=== PATIENT | female | born 1940 | race Caucasian/White ===

== ENCOUNTER 2020-06-29 11:19 | Outpatient (REF) | payer MEDICARE, SELFPAY ==
--- NOTE | 2020-06-29 | MM_ITS ---
EXAMINATION: MM SCREENING DIGITAL BREAST TOMOSYNTHESIS, BILATERAL CLINICAL INFORMATION: Screening. Asymptomatic. The lifetime risk of breast cancer based on the Tyrer-Cuzick Model is 3.2%. COMPARISON: Mammography: June 21, 2019 and studies dating back to August 12, 2013 TECHNIQUE: Digital breast tomosynthesis is performed in both the craniocaudal and mediolateral oblique views along with computer-aided detection (CAD). Synthesized 2D images are generated from the tomosynthesis. FINDINGS: The breasts are almost entirely fatty (ACR BI-RADS breast composition Category a). There are no significant masses, abnormal calcifications, or other abnormalities. MM/MM tomosynthesis screening BI IMPRESSION: There are no significant changes from prior study. ASSESSMENT: BI-RADS 1: Negative RECOMMENDATION: Routine annual mammography screening. This patient's information was entered into a reminder system with a target due date for their next mammogram.
== END 2020-06-29 11:20 | disposition home or self-care (01) ==
LOC: HO.MAMMO 11:19
PROVIDERS: PCP Internal Medicine; Visit Provider Internal Medicine
DX: Z12.31 Encounter for screening mammogram for malignant neoplasm of breast (principal)
CPT/HCPCS: 77063; 77067

== ENCOUNTER 2020-07-06 12:57 | Outpatient (REF) | payer MEDICARE, SELFPAY ==
[2020-07-06 14:36] LABS: Alanine Aminotransferase 16 U/L (0-31); Anion Gap 12 (12-20); Aspartate Amino Transferase 16 U/L (5-31); Blood Urea Nitrogen 25 mg/dL (9-16); Calcium 9.2 mg/dL (8.4-10.2); Carbon Dioxide 30 mmol/L (22-29); Chloride 105 mmol/L (96-108); Cholesterol 194 mg/dL; Estimated Glomerular Filt Rate > 60; Glucose Fasting 153 mg/dL (60-99); HDL Cholesterol 60 mg/dL; LDL Cholesterol Calculated 107 mg/dl; Potassium 4.2 mmol/l (3.3-5.1); Sodium 143 mmol/L (135-145); Triglycerides 139 mg/dL
[2020-07-06 14:44] LABS: Free T4 (Free Thyroxine) 1.45 ng/dL (0.71-1.85); Thyroid Stimulating Hormone 0.05 uIU/mL (0.32-4.0); Vitamin D 25-OH Total 35.3 ng/mL (>30)
== END 2020-07-06 12:58 | disposition home or self-care (01) ==
LOC: HO.HMGCLDS 12:57
PROVIDERS: PCP Internal Medicine; Visit Provider Internal Medicine
DX: E78.5 Hyperlipidemia, unspecified (principal); E03.9 Hypothyroidism, unspecified; I10 Essential (primary) hypertension; Z78.0 Asymptomatic menopausal state
CPT/HCPCS: 80048; 80061; 82306; 84439; 84443; 84450; 84460

== ENCOUNTER 2020-08-20 14:40 | Outpatient (REF) | payer MEDICARE, SELFPAY ==
--- NOTE | 2020-08-20 14:43 | XR_ITS ---
EXAMINATION: XR FOOT, RIGHT CLINICAL INFORMATION: Right foot injury. COMPARISON: None TECHNIQUE: AP, lateral, and oblique views of the right foot. FINDINGS: There is mild hallux valgus deformity first MTP joint with mild reduction in joint space. Rest of the visualized MTP and IP joints are normal. No visible acute fracture, dislocation or subluxation seen. There is small loose body seen adjacent to the navicular bone likely old injury. There is a small calcaneal heel and retrocalcaneal enthesophytes. The ankle mortise and subtalar joints are normal. There is dorsal first metatarsophalangeal joint dorsal spine. XR/XR foot RT min 3V IMPRESSION: Degenerative changes first MTP joint with hallux valgus deformity. Small enthesophytes along calcaneal heel and retrocalcaneal region. Mild dorsal spurring first MTP joint No acute fracture seen.
== END 2020-08-20 14:41 | disposition home or self-care (01) ==
LOC: HO.HMGCX 14:40
PROVIDERS: PCP Internal Medicine; Visit Provider Nurse Practitioner Family
DX: S99.929A Unspecified injury of unspecified foot, initial encounter (principal); X58.XXXA Exposure to other specified factors, initial encounter; Y93.9 Activity, unspecified; Y92.9 Unspecified place or not applicable; Y99.8 Other external cause status
CPT/HCPCS: 73630

== ENCOUNTER 2020-12-07 07:18 | Outpatient (REF) | payer MEDICARE, SELFPAY ==
[2020-12-07 08:02] LABS: Anion Gap 8 (12-20); Blood Urea Nitrogen 21 mg/dL (9-16); Calcium 10.2 mg/dL (8.4-10.2); Carbon Dioxide 32 mmol/L (22-29); Chloride 105 mmol/L (96-108); Cholesterol 233 mg/dL; Estimated Glomerular Filt Rate > 60; Glucose Fasting 115 mg/dL (60-99); HDL Cholesterol 67 mg/dL; LDL Cholesterol Calculated 143 mg/dl; Potassium 4.4 mmol/L (3.3-5.1); Sodium 141 mmol/L (135-145); Triglycerides 116 mg/dL
[2020-12-07 08:23] LABS: Free T4 (Free Thyroxine) 1.26 ng/dL (0.71-1.85); Thyroid Stimulating Hormone 1.27 uIU/mL (0.32-4.0)
== END 2020-12-07 07:19 | disposition home or self-care (01) ==
LOC: HO.LAB 07:18
PROVIDERS: PCP Internal Medicine; Visit Provider Internal Medicine
DX: I10 Essential (primary) hypertension (principal); R73.01 Impaired fasting glucose; E03.9 Hypothyroidism, unspecified; E78.5 Hyperlipidemia, unspecified
CPT/HCPCS: 36415; 80048; 80061; 84439; 84443

== ENCOUNTER 2021-01-21 10:00 | Outpatient (RCR) | payer MEDICARE, SELFPAY ==
[2021-01-08 08:03] VITALS: BP 145/90
--- NOTE | 2021-01-08 09:28 | MHC.PT.EP ---
[facility] [place] [facility] [place] [facility] [place] [facility] [address] Michelle Pino [address] [phone] F: [phone] F: [phone] F: [phone] F: [phone] Physical Therapy Plan of Care Date of Evaluation: Date of Surgery: Diagnosis: Positional lightheadedness Assessment: Hayley is a 80 y.o. female referred to PT for positional light headedness . On PT exam she presents with dizziness w/ saccades and smooth pursuit, and altered static and dynamic balance. She was negative for BPPV in [place] and roll tests. She would benefit from skilled PT to improve the aforementioned impairments to improve her tolerance for ADLs and ambulation. She is motivated for PT. Plan of care was discussed with Hayley and she is in agreement to try HEP and follow up with PT in one week. She was recommended 2/week but she would be doing 1/week due to high copay. Frequency and Duration: The patient will be seen 1x week for 4 weeks Short Term Goals: 1. Pt will be able to read while her head is in motion without any dizziness (DVA- 0 lines) in 2 weeks. 2. Pt will be able to perform all ADLS without LOB and dizziness in 3 weeks. [employer] Goals: 1. Pt will be able to resume walking outside on uneven terrain without any fear of LOB and dizziness in 4 weeks. 2. Pt will return to PLOF without LOB and dizziness in 4 weeks. Treatment Plan: Modalities to reduce pain, spasms and effusion. Manual therapy to restore motion and function. Therapeutic exercise to improve strength and flexibility. Neuromuscular re-education for posture and balance. Therapeutic activities to return to functional activities of daily living. Electronically signed by: Candy Rizvi PT DPT Please sign and return to therapist. Thank you for your referral.
== END 2021-02-15 15:13 | disposition home or self-care (01) ==
LOC: HO.PT 10:00
PROVIDERS: PCP Internal Medicine; Visit Provider Internal Medicine
DX: R42 Dizziness and giddiness (principal)
CPT/HCPCS: 97110; 97112; 97161

== ENCOUNTER 2021-06-14 06:58 | Outpatient (REF) | payer MEDICARE, SELFPAY ==
[2021-06-14 07:56] LABS: Alanine Aminotransferase 21 U/L (0-31); Anion Gap 12 (12-20); Aspartate Amino Transferase 20 U/L (5-31); Blood Urea Nitrogen 24 mg/dL (9-16); Calcium 9.8 mg/dL (8.4-10.2); Carbon Dioxide 28 mmol/L (22-29); Chloride 106 mmol/L (96-108); Cholesterol 211 mg/dL; Estimated Glomerular Filt Rate > 60; Glucose Fasting 100 mg/dL (60-99); HDL Cholesterol 61 mg/dL; LDL Cholesterol Calculated 127 mg/dl; Potassium 4.5 mmol/L (3.3-5.1); Sodium 141 mmol/L (135-145); Triglycerides 116 mg/dL
[2021-06-14 08:18] LABS: Free T4 (Free Thyroxine) 1.49 ng/dL (0.71-1.85); Thyroid Stimulating Hormone 0.38 uIU/mL (0.32-4.0)
== END 2021-06-14 06:59 | disposition home or self-care (01) ==
LOC: HO.LAB 06:58
PROVIDERS: PCP Internal Medicine; Visit Provider Internal Medicine
DX: E03.9 Hypothyroidism, unspecified (principal); E78.5 Hyperlipidemia, unspecified; I10 Essential (primary) hypertension; R73.01 Impaired fasting glucose
CPT/HCPCS: 36415; 80048; 80061; 82306; 84439; 84443; 84450; 84460

== ENCOUNTER 2021-12-04 07:15 | Outpatient (REF) | payer MEDICARE, SELFPAY ==
[2021-12-04 08:07] LABS: Alanine Aminotransferase 21 U/L (0-31); Anion Gap 11 (12-20); Aspartate Amino Transferase 20 U/L (5-31); Blood Urea Nitrogen 21 mg/dL (9-16); Calcium 10.6 mg/dL (8.4-10.2); Carbon Dioxide 30 mmol/L (22-29); Chloride 103 mmol/L (96-108); Cholesterol 213 mg/dL; Estimated Glomerular Filt Rate > 60; Glucose Fasting 116 mg/dL (60-99); HDL Cholesterol 61 mg/dL; LDL Cholesterol Calculated 129 mg/dl; Potassium 4.8 mmol/L (3.3-5.1); Sodium 139 mmol/L (135-145); Triglycerides 115 mg/dL
[2021-12-04 08:27] LABS: Free T4 (Free Thyroxine) 1.37 ng/dL (0.71-1.85); Thyroid Stimulating Hormone 0.39 uIU/mL (0.32-4.0); Vitamin D 25-OH Total 39.5 ng/mL (>30)
== END 2021-12-04 07:16 | disposition home or self-care (01) ==
LOC: HO.LAB 07:15
PROVIDERS: PCP Internal Medicine; Visit Provider Internal Medicine
DX: E03.9 Hypothyroidism, unspecified (principal); E78.5 Hyperlipidemia, unspecified; F41.1 Generalized anxiety disorder; I10 Essential (primary) hypertension; R73.01 Impaired fasting glucose; N95.9 Unspecified menopausal and perimenopausal disorder; M85.89 Other specified disorders of bone density and structure, multiple sites
CPT/HCPCS: 36415; 80048; 80061; 82306; 84439; 84443; 84450; 84460

== ENCOUNTER 2022-01-09 10:25 | Outpatient (REF) | payer MEDICARE, SELFPAY ==
--- NOTE | ~2022-01-09 | MM_ITS ---
EXAMINATION: BONE DENSITOMETRY CLINICAL INDICATION: Encounter for screening for osteoporosis. COMPARISON: Previous BD dated 05/27/2018 and baseline BD dated 03/22/2015, left hip. TECHNIQUE: Using a [employer] DXA System (software version: 13.1) manufactured by [employer], dual-energy x-ray absorptiometry was performed of the lumbar spine and left hip. The images are of good technical quality. Summary results are attached. FINDINGS: AP SPINE L1-L4: Current: BMD 1.210 g/cm2, Z-score 1.6, T-score 0.2, normal, 0.6% increase from previous, 5.7% increase from baseline (<5% change is not significant). Prior: BMD 1.203 g/cm2. Baseline: BMD 1.145 g/cm2. LEFT FEMUR, NECK: Current: BMD 0.724 g/cm2, Z-score -0.4, T-score -2.3, osteopenia. Prior: BMD 0.726 g/cm2. Baseline: BMD 0.746 g/cm2. LEFT FEMUR, TOTAL: Current: BMD 0.849 g/cm2, Z-score 0.4, T-score -1.3, osteopenia, 2.9% decrease from previous, 5.8% decrease from baseline (<5% change is not significant). Prior: BMD 0.874 g/cm2. Baseline: BMD 0.901 g/cm2. IDENTIFIED RISK FACTORS: Recurrent falls, history of fracture (adult), menopause. HISTORY OF FRACTURE: Lower leg/fibula. MEDICATIONS: Calcium supplements or multivitamin, vitamin D. MM/XR DEXA axial skeleton IMPRESSION: 1. DIAGNOSIS: Osteopenia based on the lowest T-score value of -2.3 in the femoral neck applying World Health Organization criteria. 2. 10-YEAR FRACTURE RISK PREDICTION, FRAX: Major osteoporotic fracture (clinical spine, forearm, hip or shoulder) 23.1%. Hip fracture 6.8%. 3. Treatment Recommendations: NOF guidelines recommend consideration for treatment in postmenopausal women and men age 50 and older presenting with the following: -A hip or vertebral (clinical or morphometric) fracture. -T-score less than or equal to -2.5 at the femoral neck or spine after appropriate evaluation to exclude secondary causes. -Low bone mass at the hip or spine and a 10-year fracture probability by FRAX of greater than or equal to 3% for hip fracture or greater than or equal to 20% for major osteoporotic fracture based on the [place] adapted WHO algorithm. 4. Other Recommendations: All treatment decisions require clinical judgment and consideration of individual patient factors, including patient preferences, comorbidities, previous drug use, risk factors not captured in the FRAX model (e.g. frailty, falls, vitamin D deficiency, increased bone turnover, interval significant decline in bone density) and possible under or overestimation of fracture risk by FRAX. Additional medical evaluation for secondary cause of low bone mineral density may be appropriate. FUTURE SCAN RECOMMENDATION: People with diagnosed cases of osteoporosis or at high risk for fracture should have regular bone mineral density tests. For patients eligible for Medicare, routine testing is allowed once every 2 years. The testing frequency can be increased to one year for patients who have rapidly progressing disease, those who are receiving or discontinuing medical therapy to restore bone mass, or have additional risk factors.
--- NOTE | ~2022-01-09 | MM_ITS ---
EXAMINATION: MM SCREENING DIGITAL BREAST TOMOSYNTHESIS, BILATERAL CLINICAL INFORMATION: Screening. Asymptomatic. The lifetime risk of breast cancer based on the Tyrer-Cuzick Model is 2%. COMPARISON: Mammography: 06/29/2020, 06/21/2019, 05/25/2018 TECHNIQUE: Digital breast tomosynthesis is performed in both the craniocaudal and mediolateral oblique views along with computer-aided detection (CAD). Synthesized 2D images are generated from the tomosynthesis. FINDINGS: There are scattered areas of fibroglandular density (ACR BI-RADS breast composition Category b). There are no significant masses, abnormal calcifications, or other abnormalities. Parenchymal pattern is similar to prior studies. There is no developing density or architectural abnormality. The axilla and skin contours are unremarkable. No significant changes. MM/MM tomosynthesis screening BI IMPRESSION: No mammographic evidence of malignancy. ASSESSMENT: BI-RADS 1: Negative RECOMMENDATION: Routine annual mammography screening. This patient's information was entered into a reminder system with a target due date for their next mammogram.
== END 2022-01-09 10:26 | disposition home or self-care (01) ==
LOC: HO.MAMMO 10:25
PROVIDERS: PCP Internal Medicine; Visit Provider Internal Medicine
DX: Z12.31 Encounter for screening mammogram for malignant neoplasm of breast (principal); Z13.820 Encounter for screening for osteoporosis; M85.89 Other specified disorders of bone density and structure, multiple sites; Z78.0 Asymptomatic menopausal state
CPT/HCPCS: 77063; 77067; 77080

== ENCOUNTER 2022-03-12 06:49 | Outpatient (REF) | payer MEDICARE, SELFPAY ==
[2022-03-12 07:31] LABS: Estimated Average Glucose 117 mg/dL; Hemoglobin A1c % 5.7 %
[2022-03-12 07:46] LABS: Alanine Aminotransferase 20 U/L (0-31); Anion Gap 12 (12-20); Aspartate Amino Transferase 20 U/L (5-31); Blood Urea Nitrogen 20 mg/dL (9-16); Calcium 9.4 mg/dL (8.4-10.2); Carbon Dioxide 29 mmol/L (22-29); Chloride 103 mmol/L (96-108); Cholesterol 204 mg/dL; Estimated Glomerular Filt Rate 56; Glucose Fasting 103 mg/dL (60-99); HDL Cholesterol 66 mg/dL; LDL Cholesterol Calculated 123 mg/dl; Potassium 4.4 mmol/L (3.3-5.1); Sodium 140 mmol/L (135-145); Triglycerides 75 mg/dL
[2022-03-12 08:09] LABS: Free T4 (Free Thyroxine) 1.55 ng/dL (0.71-1.85); Thyroid Stimulating Hormone 0.21 uIU/mL (0.32-4.0); Vitamin D 25-OH Total 41.2 ng/mL (>30)
[2022-03-15 12:57] LABS: Calcium, Ionized 5.2 mg/dL (4.8-5.6)
== END 2022-03-12 06:50 | disposition home or self-care (01) ==
LOC: HO.LAB 06:49
PROVIDERS: PCP Internal Medicine; Visit Provider Internal Medicine
DX: E03.9 Hypothyroidism, unspecified (principal); E78.5 Hyperlipidemia, unspecified; I10 Essential (primary) hypertension; E83.52 Hypercalcemia; F41.1 Generalized anxiety disorder; R73.01 Impaired fasting glucose; Z78.0 Asymptomatic menopausal state
CPT/HCPCS: 36415; 80048; 80061; 82306; 82330; 83036; 84439; 84443; 84450; 84460

== ENCOUNTER 2022-05-22 07:32 | Outpatient (REF) | payer MEDICARE, SELFPAY ==
[2022-05-22 08:42] LABS: Thyroid Stimulating Hormone 0.83 uIU/mL (0.32-4.0)
== END 2022-05-22 07:33 | disposition home or self-care (01) ==
LOC: HO.LAB 07:32
PROVIDERS: PCP Internal Medicine; Visit Provider Internal Medicine
DX: E03.9 Hypothyroidism, unspecified (principal)
CPT/HCPCS: 36415; 84439; 84443

== ENCOUNTER → 2022-06-26 10:17 | Outpatient (BNVA) | payer MEDICARE, SELFPAY | PROVIDERS: PCP Internal Medicine; Visit Provider Surgery | DX: K64.8 Other hemorrhoids (principal) | CPT/HCPCS: 46600; 99202 ==

== ENCOUNTER → 2022-08-28 13:00 | Outpatient (BNVA) | payer MEDICARE, SELFPAY | PROVIDERS: PCP Internal Medicine; Visit Provider Surgery | DX: K64.8 Other hemorrhoids (principal) | CPT/HCPCS: 99212 ==

== ENCOUNTER 2022-11-08 11:55 | Outpatient (REF) | payer MEDICARE, SELFPAY ==
--- NOTE | ~2022-11-08 | XR_ITS ---
EXAMINATION: XR KNEE, RIGHT CLINICAL INFORMATION: Right knee osteoarthritis. COMPARISON: None available. TECHNIQUE: Four views of the right knee. FINDINGS: Mild medial compartment joint space narrowing. Small tricompartmental marginal osteophytes. No acute fracture or dislocation. No concerning lytic or blastic osseous lesion. Trace joint effusion. No abnormal soft tissue calcification. XR/XR knee RT 4V IMPRESSION: Mild tricompartmental osteoarthritis. Trace joint effusion.
== END 2022-11-08 11:56 | disposition home or self-care (01) ==
LOC: HO.HMGCX 11:55
PROVIDERS: PCP Internal Medicine; Visit Provider Physician Assistant
DX: M17.11 Unilateral primary osteoarthritis, right knee (principal)
CPT/HCPCS: 73564

== ENCOUNTER 2022-11-10 13:20 | Outpatient (REF) | payer MEDICARE, SELFPAY ==
--- NOTE | ~2022-11-10 | US_ITS ---
EXAMINATION: US VENOUS ULTRASOUND WITH DOPPLER LOWER EXTREMITY, RIGHT CLINICAL INFORMATION: Swelling COMPARISON: None available. TECHNIQUE: Ultrasound of the deep veins is performed from the hip to the calf with compression sonography and color and pulse Doppler assessment. Spectral analysis with color-flow imaging is performed. FINDINGS: There is normal venous compression and respiratory variation and augmented flow. The visualized common femoral vein, superficial femoral vein, profunda femoral vein, popliteal vein, and the trifurcation region shows no evidence of deep venous thrombosis. There is no significant popliteal fossa cyst. US/US venous duplex LE RT IMPRESSION: No DVT demonstrated in the right lower extremity.
== END 2022-11-10 13:21 | disposition home or self-care (01) ==
LOC: HO.US 13:20
PROVIDERS: PCP Internal Medicine; Visit Provider Physician Assistant
DX: M79.89 Other specified soft tissue disorders (principal)
CPT/HCPCS: 93971

== ENCOUNTER 2022-11-24 13:47 | Outpatient (REF) | payer MEDICARE, SELFPAY ==
--- NOTE | ~2022-11-24 | XR_ITS ---
EXAMINATION: XR KNEE STANDING, BILATERAL XR KNEE, LEFT CLINICAL INDICATION: Pain. COMPARISON: Left knee 03/02/2014. FINDINGS: AP Bilateral Knee: There is moderate loss of medial compartment joint space of both knees with periarticular spurring medial compartment left knee. The lateral compartment of both knees is unremarkable. No loose bodies or bony erosive changes seen. Left Knee: There is mild loss of patellofemoral compartment joint space without bony erosive changes, loose bodies or spurring. No abnormal joint effusion seen. XR/XR knee LT 2V IMPRESSION: 1. Moderate degenerative changes medial compartment both knees with periarticular spurring medial compartment left knee. 2. Mild degenerative changes patellofemoral compartment left knee.
--- NOTE | ~2022-11-24 | XR_ITS ---
EXAMINATION: XR KNEE STANDING, BILATERAL XR KNEE, LEFT CLINICAL INDICATION: Pain. COMPARISON: Left knee 03/02/2014. FINDINGS: AP Bilateral Knee: There is moderate loss of medial compartment joint space of both knees with periarticular spurring medial compartment left knee. The lateral compartment of both knees is unremarkable. No loose bodies or bony erosive changes seen. Left Knee: There is mild loss of patellofemoral compartment joint space without bony erosive changes, loose bodies or spurring. No abnormal joint effusion seen. XR/XR knee standing BI IMPRESSION: 1. Moderate degenerative changes medial compartment both knees with periarticular spurring medial compartment left knee. 2. Mild degenerative changes patellofemoral compartment left knee.
== END 2022-11-24 13:48 | disposition home or self-care (01) ==
LOC: HO.HOSX 13:47
PROVIDERS: PCP Internal Medicine; Visit Provider Orthopaedic Surgery
DX: M17.0 Bilateral primary osteoarthritis of knee (principal)
CPT/HCPCS: 20610; 73560; 73565; 99202; J1100

== ENCOUNTER 2023-01-14 10:23 | Outpatient (REF) | payer MEDICARE, SELFPAY ==
--- NOTE | ~2023-01-14 | MM_ITS ---
EXAMINATION: MM SCREENING DIGITAL BREAST TOMOSYNTHESIS, BILATERAL CLINICAL INFORMATION: Screening. Asymptomatic. The lifetime risk of breast cancer based on the Tyrer-Cuzick Model is under 3%. COMPARISON: Mammography: 01/09/2022, 06/29/2020, 06/21/2019 TECHNIQUE: Digital breast tomosynthesis is performed in both the craniocaudal and mediolateral oblique views along with computer-aided detection (CAD). Synthesized 2D images are generated from the tomosynthesis. Additional left CC view is provided. FINDINGS: There are scattered areas of fibroglandular density (ACR BI-RADS breast composition Category b). There are no significant masses, abnormal calcifications, or other abnormalities. Background stromal and fibroglandular markings are similar to previous exams and there is no developing density or architectural abnormality. Small smooth intramammary node again seen posterior central 9:00 right breast. There are scattered bilateral benign round and some ductal secretory and numerous vascular calcifications as before. The axilla are unremarkable. MM/MM tomosynthesis screening BI IMPRESSION: No mammographic evidence of malignancy. ASSESSMENT: BI-RADS 2: Benign RECOMMENDATION: Routine annual mammography screening. This patient's information was entered into a reminder system with a target due date for their next mammogram.
== END 2023-01-14 10:24 | disposition home or self-care (01) ==
LOC: HO.MAMMO 10:23
PROVIDERS: PCP Internal Medicine; Visit Provider Internal Medicine
DX: Z12.31 Encounter for screening mammogram for malignant neoplasm of breast (principal)
CPT/HCPCS: 77063; 77067

== ENCOUNTER 2023-02-24 01:55 | Emergency (ER) | payer MEDICARE, SELFPAY ==
--- NOTE | ~2023-02-24 | CT_ITS ---
EXAMINATION: CT ABDOMEN AND PELVIS WITHOUT CONTRAST CLINICAL INFORMATION: Question of small bowel COMPARISON: 06/21/2017 TECHNIQUE: Multidetector volumetric imaging was performed from the superior aspect of the liver through the pubic symphysis. Sagittal and coronal reformatted images were obtained on the technologist's workstation. This CT examination was performed using dose optimization techniques as appropriate, variously including the following: *Automated exposure control *Adjustment of mA and/or kV according to patient size (this includes techniques or standardized protocols for targeted exams where dose is matched to indication/reason for exam; i.e. extremities or head) *Use of iterative reconstruction technique DLP: 791 mGy-cm FINDINGS: LUNG BASES: The visualized lung bases are unremarkable. LIVER, GALLBLADDER, AND BILIARY TREE: The liver is normal in size, shape, and attenuation. No focal hepatic lesion or biliary ductal dilatation is present. The gallbladder is unremarkable with no evidence of radiopaque gallstones, gallbladder wall thickening, or obvious pericholecystic inflammatory changes. PANCREAS: Unremarkable. SPLEEN: Unremarkable. ADRENAL GLANDS: Unremarkable. KIDNEYS AND URETERS: The kidneys are normal in size, shape, and attenuation. No hydronephrosis, hydroureter, or calculi seen. No perinephric stranding. BLADDER: Unremarkable. GASTROINTESTINAL TRACT: Right hemicolectomy with intact ileocolic anastomosis in the right midabdomen. There are a few scattered colonic diverticula. No evidence of diverticulitis. Stomach and small bowel unremarkable. ABDOMINAL WALL: No significant hernia. LYMPH NODES: Normal. VASCULAR: Aorta is atherosclerotic but nonaneurysmal. Small penetrating atherosclerotic ulceration along the left lateral aspect of the mid abdominal aorta. PELVIC VISCERA: Uterus and adnexa unremarkable. OSSEOUS STRUCTURES: No acute or suspicious osseous abnormalities. Mild levoconvex lumbar scoliosis. CT/CT abdomen pelvis wo IV con IMPRESSION: * No acute findings within the abdomen or pelvis. * Right hemicolectomy with intact ileocolic anastomosis in the right midabdomen. * Scattered colonic diverticula without evidence of diverticulitis.
[2023-02-24 01:57] VITALS: BP 157/83; PULSE 67; RESP 16; TEMP 36.4; O2SAT 96; BMI 32.0
[2023-02-24 03:08] LABS: MANUAL DIFF FLAG NO
[2023-02-24 03:13] LABS: Basophils Absolute Auto 0.1 X10*3/uL (0.0-0.2); Basophils Percent Auto 0.6 % (0-2); Eosinophils Absolute Auto 0.3 X10*3/uL (0.0-0.4); Eosinophils Percent Auto 4.2 % (0-4); Hematocrit 41.9 % (37.0-47.0); Hemoglobin 13.9 g/dl (12.0-16.0); Imm Gran Abs Auto 0.02 X10*3/uL (0.00-0.03); Imm Gran Pct Auto 0.3 % (0.0-0.4); Lymphocytes Absolute Auto 1.5 X10*3/uL (1.2-4.9); Mean Corpuscular HGB Conc 33.2 g/dl (31.0-35.0); Mean Corpuscular Hemoglobin 31.2 pg (27.0-33.0); Mean Corpuscular Volume 94.2 fL (80.0-98.0); Monocytes Absolute Auto 0.6 X10*3/uL (0.1-1.2); Monocytes Percent Auto 7.9 % (2-11); Neutrophils Absolute Auto 5.2 x10*3/uL (2.0-8.3); Platelet Count 230 X10*3/uL (160-400); Red Blood Count 4.45 X10*6/uL (4.20-5.50); Red Cell Distribution Width 13.8 % (11.0-16.0); White Blood Count 7.7 X10*3/uL (4.8-10.8)
[2023-02-24 03:24] LABS: Alanine Aminotransferase 21 U/L (0-31); Albumin Level 4.2 g/dL (3.5-5.0); Alkaline Phosphatase 60 U/L (39-117); Anion Gap 17 (12-20); Aspartate Amino Transferase 21 U/L (5-31); Bilirubin Direct 0.2 mg/dL (0.0-0.5); Bilirubin Total 0.4 mg/dL (0.0-1.0); Blood Urea Nitrogen 22 mg/dL (9-16); Calcium 10.4 mg/dL (8.4-10.2); Carbon Dioxide 25 mmol/L (22-29); Chloride 106 mmol/L (96-108); Creatinine Clr Calc Pharmacy 46.5; Estimated Glomerular Filt Rate 59; Glucose Random 119 mg/dL (60-115); Lipase 16 U/L (8-78); Potassium 4.5 mmol/L (3.3-5.1); Sodium 143 mmol/L (135-145); Total Protein 7.2 g/dL (6.5-8.0)
--- NOTE | 2023-02-24 04:05 | ED_ITS ---
HPI - Abdominal Pain General Chief Complaint: Abdominal Pain Stated Complaint: Abd pain Time Seen by Provider: 02/24/23 03:59 Source: patient Mode of arrival: ambulatory Limitations: no limitations History of Present Illness HPI narrative: Patient comes to the emergency room complaining of 4 hours of abdominal pain. Patient states that she has had multiple small-bowel obstructions in the past and it feels very similar. Patient complaining of nausea, no vomiting. Patient states that earlier today she took some Mag citrate and she was able to move her bowels but that is before the abdominal pain started. Denies fever chills, no URI or UTI. Related Data Home Medications Medication Instructions Recorded Confirmed loratadine 10 mg tablet 10 mg PO DAILY 11/29/20 11/08/22 multivitamin 1 tab PO DAILY 11/29/20 11/08/22 tizanidine 4 mg tablet 4 mg PO BID PRN muscle spasticity 03/17/22 11/08/22 Previous Rx's Medication Instructions Recorded cholecalciferol (vitamin D3) 25 25 mcg PO DAILY #90 caps 01/11/21 mcg (1,000 unit) capsule albuterol sulfate 90 mcg/actuation 2 puff PO Q4H PRN for wheezing 06/27/22 aerosol inhaler #8.5 grams Synthroid 100 mcg tablet 100 mcg PO DAILY 90 days #90 tabs 10/31/22 (levothyroxine) buspirone 5 mg tablet 5 mg PO TID #270 tabs 11/21/22 inhalational spacing device #1 ea 11/21/22 (BreatheRite MDI Spacer) losartan 100 mg tablet 100 mg PO DAILY #90 tabs 11/26/22 budesonide-formoterol HFA 80 2 puff inhalation BID #30.6 grams 01/29/23 mcg-4.5 mcg/actuation aerosol inhaler (Symbicort) zolpidem 5 mg tablet 5 mg PO BEDTIME PRN insomnia #30 01/29/23 tabs celecoxib 200 mg capsule 200 mg PO BID #90 caps 02/16/23 dicyclomine 20 mg tablet 20 mg PO TID #90 tabs 02/19/23 ondansetron 4 mg disintegrating 4 mg PO Q6H PRN nausea and 02/24/23 tablet vomiting #14 tabs Allergies Allergy/AdvReac Type Severity Reaction Status Date / Time Penicillins [PENICILLINS] Allergy Intermediate HIVES Verified 11/21/22 11:52 pneumococcal vaccine Allergy Unknown hives Verified 11/21/22 11:52 sulfamethoxazole AdvReac Intermediate STOMACH Verified 11/21/22 11:52 [From BACTRIM] UPSET Arzljcy-YSH-BdO Reductase AdvReac Mild MUSCLE PAIN Verified 11/21/22 11:52 Inhibitor [[id number]-SKC REDUCTASE INHIBITOR] simvastatin AdvReac Unknown muscle pain Verified 11/21/22 11:52 Review of Systems Review of Systems Constitutional : No Weight loss, No Fever, No Chills, No Night Sweats, No Fatigue, No Malaise ENT/Mouth : No Hearing loss, No Ear Pain, No Nasal Congestion, No Sinus Pain, No Hoarseness, No sore throat, No Rhinorrhea, No Swallowing Difficulty Eyes: No Eye Pain, No Swelling, No Redness, No Foreign Body, No Discharge, No Vision Changes Cardiovascular : No Chest Pain, No SOB, No Dyspnea on Exertion, No Orthopnea, No Edema, No Palpitations Respiratory : No Cough, No Sputum, No Wheezing, No Smoke Exposure, No Dyspnea Gastrointestinal : Complaining of nausea, no vomiting or diarrhea, complaining of diffuse abdominal pain, states feels like a small bowel obstruction Genitourinary : no irregular bleeding, No Dysuria, No Urinary Frequency, No Hematuria, No Urinary Incontinence, No Urgency, No Flank Pain, No Urinary Flow Changes, No Hesitancy Musculoskeletal : No joint pain, No Myalgias, No Joint Swelling Skin : No Skin Lesions, No rash Neuro : No Weakness, No Numbness, No Paresthesias, No Loss of Consciousness, No Dizziness, No Headache Psych : No Anxiety/Panic, No Depression, No SI/HI/AH/VH, No Social Issues, Heme/Lymph: No Bruising, No Bleeding,No Lymphadenopathy Endocrine : No Polyuria, No Polydipsia, No Temperature Intolerance [facility] Past Medical History Medical History Acquired hypothyroidism Anal irritation Dyslipidemia Essential hypertension Generalized anxiety disorder Hemorrhoids with complication Hypercalcemia Impaired fasting glucose Insomnia Menopause Mild intermittent asthma Osteopenia of multiple sites Positional lightheadedness Shortness of breath Surgical History History of appendectomy History of colon resection History of lumpectomy History of tonsillectomy Family History Family History Father Unknown family medical history Mother Bowel cancer Daughter Stroke Maternal Aunt Breast cancer Son No problems noted. Son No problems noted. Son No problems noted. Son No problems noted. Daughter No problems noted. Daughter No problems noted. Social History Social History Housing: House Alcohol intake: current Patient Tobacco Use Status: Never used Tobacco e-Cigarette/Vaping Use: Never Used Advance Directives: No Advance Directives Information Provided: Yes service: No Current occupational status: retired Cognitive needs: No Hearing needs: No Vision needs: No Physical Exam ED Vital Signs: Vital Signs - 24 hr 02/24/23 01:57 02/24/23 04:18 Temperature 97.5 F Pulse Rate 67 67 Respiratory Rate 16 16 Blood Pressure 157/83 H 127/74 Pulse Oximetry 96 92 Oxygen Delivery Method Room Air Room Air BMI result Body Mass Index 32.0 Const Other: Appearance: Alert. Oriented X3. No acute distress. Eyes: Pupils equal, round and reactive to light. ENT: Pharynx normal. Neck: Normal inspection. Neck supple. No lymph nodes noted. No crepitus CVS: Normal heart rate and rhythm. Pulses normal. Normal S1 and S2 Respiratory: No respiratory distress. Breath sounds normal. No Wheezing. No rales Abdomen: Soft slightly distended, mildly tender especially in the periumbilical area, no rebound or guarding Skin: Skin warm and dry. Normal skin color. Normal skin turgor. Extremities: No lower extremity edema. No Lacerations. No Rash Neuro: Oriented X 3. No motor deficit. No sensory deficit. Moving all extremities. No slurred speech. CN 2 through 12 grossly intact Psych: calm, cooperative, normal affect Medical Decision Making Medical Decision Making MDM Narrative: Patient has history of multiple surgeries in the abdomen, SBO with a possibility, admission being considered -my interpretation of labs, patient's white blood cell count within normal limits, normal chemistry, LFTs and lipase. -urinalysis pending -CT scan of the abdomen pending -patient getting IV fluids, Zofran, morphine -my interpretation of CT scan: No air-fluid levels, SBO unlikely -patient states that she feels much better, she no longer feels nauseous, not distention or abdominal pain Differential Diagnosis Differential Diagnoses: The differential diagnosis associated with the presentation includes (SBO, diverticulitis, perforation, abscess, IBS) Admission/Observation Consideration of admission/observation: Escalation of care including admission/observation considered Lab Data MDM Lab Attestation statement: I reviewed the patient's lab results. 02/24/23 03:04 02/24/23 03:04 Labs: Lab Results 02/24/23 02/24/23 02/24/23 Range/Units 03:04 03:04 04:03 WBC 7.7 (4.8-10.8) X10*3/uL RBC 4.45 (4.20-5.50) X10*6/uL Hgb 13.9 (12.0-16.0) g/dl Hct 41.9 (37.0-47.0) % MCV 94.2 (80.0-98.0) fL MCH 31.2 (27.0-33.0) pg MCHC 33.2 (31.0-35.0) g/dl RDW 13.8 (11.0-16.0) % Plt Count 230 (160-400) X10*3/uL MPV 10.0 (9.4-12.3) fL Immature Gran % (Auto) 0.3 (0.0-0.4) % Neut % (Auto) 68.0 (45-73) % Lymph % (Auto) 19.0 L (20-40) % [place] % (Auto) 7.9 (2-11) % Eos % (Auto) 4.2 H (0-4) % Baso % (Auto) 0.6 (0-2) % Lymph # (Auto) 1.5 (1.2-4.9) X10*3/uL [place] # (Auto) 0.6 (0.1-1.2) X10*3/uL Eos # (Auto) 0.3 (0.0-0.4) X10*3/uL Baso # (Auto) 0.1 (0.0-0.2) X10*3/uL Abs Immat Gran (auto) 0.02 (0.00-0.03) X10*3/uL Absolute Neuts (auto) 5.2 (2.0-8.3) x10*3/uL Absolute Nucleated RBC 0.000 (0.0-0.012) X10*3/uL Nucleated RBC % (auto) 0.0 (0.0-0.2) /100WBC Sodium 143 (135-145) mmol/L Potassium 4.5 (3.3-5.1) mmol/L Chloride 106 (96-108) mmol/L Carbon Dioxide 25 (22-29) mmol/L Anion Gap 17 (12-20) BUN 22 H (9-16) mg/dL Creatinine 0.91 (0.5-1.4) mg/dL Estim Creat Clear Calc 46.5 Estimated GFR 59 Random Glucose 119 H (60-115) mg/dL Calcium 10.4 H D (8.4-10.2) mg/dL Total Bilirubin 0.4 (0.0-1.0) mg/dL Direct Bilirubin 0.2 (0.0-0.5) mg/dL AST 21 (5-31) U/L ALT 21 (0-31) U/L Alkaline Phosphatase 60 (39-117) U/L Total Protein 7.2 (6.5-8.0) g/dL Albumin 4.2 (3.5-5.0) g/dL Lipase 16 (8-78) U/L Urine Color Yellow Urine Appearance Clear Urine pH 5.5 (5.0-9.0) Ur Specific [place] 1.015 (1.005-1.025) Urine Protein Trace (Neg-Trace) mg/dL Urine Glucose (UA) Negative (Negative) mg/dL Urine Ketones Negative (Negative) mg/dL Urine Blood Negative (Negative) Urine Nitrite Negative (Negative) Ur Leukocyte Esterase Trace H (Negative) Urine RBC 0-2 (0-2) /HPF Urine WBC 0-5 (0-5) /HPF Ur Squamous Epith Cells 3-5 (0-2) /HPF Urine Bacteria None Seen (None Seen) Hyaline Casts 0-2 (0-2) /LPF Independent Interpretation I performed an independent interpretation of an: CT Scan Radiology Impression Discussion of test interpretation with radiology: I have reviewed the radiologist's reading. Radiologist Impression: LUNG BASES: The visualized lung bases are unremarkable.? LIVER, GALLBLADDER, AND BILIARY TREE: The liver is normal in size, shape, and attenuation. No focal hepatic lesion or biliary ductal dilatation is present. The gallbladder is unremarkable with no evidence of radiopaque gallstones, gallbladder wall thickening, or obvious pericholecystic inflammatory changes.? PANCREAS: Unremarkable.? SPLEEN: Unremarkable.? ADRENAL GLANDS: Unremarkable.? KIDNEYS AND URETERS: The kidneys are normal in size, shape, and attenuation. No hydronephrosis, hydroureter, or calculi seen. No perinephric stranding. ? BLADDER: Unremarkable.? GASTROINTESTINAL TRACT: Right hemicolectomy with intact ileocolic anastomosis in the right midabdomen. There are a few scattered colonic diverticula. No evidence of diverticulitis. Stomach and small bowel unremarkable.? ABDOMINAL WALL: No significant hernia.? LYMPH NODES: Normal. VASCULAR: Aorta is atherosclerotic but nonaneurysmal. Small penetrating atherosclerotic ulceration along the left lateral aspect of the mid abdominal aorta. PELVIC VISCERA: Uterus and adnexa unremarkable.? OSSEOUS STRUCTURES: No acute or suspicious osseous abnormalities. Mild levoconvex lumbar scoliosis.? CT/CT abdomen pelvis wo IV con IMPRESSION: *? No acute findings within the abdomen or pelvis. *? Right hemicolectomy with intact ileocolic anastomosis in the right midabdomen. *? Scattered colonic diverticula without evidence of diverticulitis. ? ? Prescription Management I considered prescription management with: Pain Medication (Consider send the patient with narcotics for pain management. However, this would worsen patient's constipation) Chronic Conditions Patient?s care impacted by: Other (IBS) Medications Administered Discontinued Medications Generic Name Dose Route Start Last Admin Trade Name Freq PRN Reason Stop Dose Admin Sodium Chloride 1,000 mls @ 999 mls/hr 02/24/23 04:07 02/24/23 05:34 Ns IVCONT 02/24/23 05:07 Infused .Q1H1M ONE Infusion Morphine Sulfate 4 mg 02/24/23 04:07 02/24/23 04:17 Morphine Sulfate 4 Mg/Ml Cartridge IVPUSH 02/24/23 04:08 Not Given ONCE ONE Protocol Ondansetron HCl 4 mg 02/24/23 04:07 02/24/23 04:15 Ondansetron Hcl 4 Mg/2 Ml Vial IVPUSH 02/24/23 04:08 4 mg ONCE ONE Administration Critical Care Time Critical Care Time Critical Care Time: Yes Total Critical Care Time: 30 Attestation: I have personally provided critical care time. Time includes review of lab data, radiology results, discussion with consultants, and monitoring for potential decompensation. Intervention performed as documented. Discharge Plan Discharge Clinical Impression: Abdominal pain, Nausea Patient Disposition: Home, Self-Care Instructions: Abdominal Pain (ED) Additional Instructions: Please follow-up with your primary care physician tomorrow. If you have any worsening or new symptoms, please return to the emergency room or call 911 Prescriptions: New ondansetron 4 mg tablet,disintegrating 4 mg PO Q6H PRN (Reason: nausea and vomiting) Qty: 14 0RF No Action cholecalciferol (vitamin D3) 25 mcg (1,000 unit) capsule 25 mcg PO DAILY Qty: 90 1RF albuterol sulfate 90 mcg/actuation HFA aerosol inhaler 2 puff PO Q4H PRN (Reason: for wheezing) Qty: 8.5 4RF levothyroxine [Synthroid] 100 mcg tablet 100 mcg PO DAILY 90 Days Qty: 90 1RF losartan 100 mg tablet 100 mg PO DAILY Qty: 90 1RF budesonide-formoterol [Symbicort] 80-4.5 mcg/actuation HFA aerosol inhaler 2 puff inhalation BID Qty: 30.6 1RF zolpidem 5 mg tablet 5 mg PO BEDTIME PRN (Reason: insomnia) Qty: 30 0RF celecoxib 200 mg capsule 200 mg PO BID Qty: 90 0RF dicyclomine 20 mg tablet 20 mg PO TID Qty: 90 3RF multivitamin Tablet 1 tab PO DAILY loratadine 10 mg tablet 10 mg PO DAILY tizanidine 4 mg tablet 4 mg PO BID PRN (Reason: muscle spasticity) Rx Instructions: 1/2 tablet po (DME) BreatheRite MDI Spacer Spacer See Rx Instructions .Route Qty: 1 0RF Rx Instructions: As directed buspirone 5 mg tablet 5 mg PO TID Qty: 270 1RF
[2023-02-24 04:12] LABS: Appearance Urine Clear; Color Urine Yellow; Glucose Urine UA Negative (Negative); Leukocyte Esterase Urine Trace (Negative); Nitrite Urine Negative (Negative); PH 5.5 (5.0-9.0); Specific Gravity - Urine 1.015 (1.005-1.025); UMIC TRIGGER UACC YES; Urine Blood Negative (Negative); Urine Ketones Negative (Negative); Urine Protein Trace mg/dL (Neg-Trace)
[2023-02-24] MEDS: ondansetron HCL 4 MG/2 ML VIAL IVPUSH (04:15)
[2023-02-24] MEDS: 0.9 % Sodium Chloride 1,000 ML 999 ML IVCONT (04:16)
[2023-02-24 04:18] VITALS: BP 127/74; PULSE 67; RESP 16; O2SAT 92
[2023-02-24 04:19] LABS: Bacteria Urine None Seen (None Seen); Hyaline Casts Urine 0-2 /LPF (0-2); RBC Urine 0-2 /HPF (0-2); WBC Urine 0-5 /HPF (0-5)
[2023-02-24 06:17] VITALS: BP 146/71; PULSE 74; RESP 17; TEMP 36.6; O2SAT 94
== END 2023-02-24 06:23 | disposition home or self-care (01) ==
PROVIDERS: Emergency Provider Emergency Medicine; PCP Internal Medicine
DX: R10.9 Unspecified abdominal pain (principal); R11.0 Nausea; I10 Essential (primary) hypertension; E78.5 Hyperlipidemia, unspecified; Z79.899 Other long term (current) drug therapy
CPT/HCPCS: 36415; 74176; 80048; 80076; 81001; 83690; 85025; 99284; J2405

== ENCOUNTER 2023-02-26 14:45 | Outpatient (AMB) | payer MEDICARE, SELFPAY ==
[2023-02-26 15:23] VITALS: BP 130/80; PULSE 73; O2SAT 95; BMI 32.2
--- NOTE | 2023-02-26 15:23 | A.OFFPC_ITS ---
Vital Signs 02/26/23 15:23 Height 5 ft 2 in Weight 176 lb 2 oz BMI 32.2 BP 130/80 Blood Pressure Location Lt brachial Position Sitting Pulse 73 Pulse Source Pulse Oximeter Pulse Oximetry (%) 95 Oxygen Delivery Method Room Air Intake Visit Reasons: [facility], Abdominal pain, 02/24 Intake Note: Pt is here for abdominal pain, concerns eating less Allergies Penicillins [PENICILLINS] Allergy (Intermediate, Verified 02/26/23 15:41) HIVES pneumococcal vaccine Allergy (Unknown, Verified 02/26/23 15:41) hives sulfamethoxazole [From BACTRIM] Adverse Reaction (Intermediate, Verified 02/26/23 15:41) STOMACH UPSET Dmctvqy-XKG-DpW Reductase Inhibitor [QLWSIIT-UPG-YZE REDUCTASE INHIBITOR] Adverse Reaction (Mild, Verified 02/26/23 15:41) MUSCLE PAIN simvastatin Adverse Reaction (Unknown, Verified 02/26/23 15:41) muscle pain Medication List - Last Reconciled 02/26/23 by Yadira Sinclair MD albuterol sulfate 90 mcg/actuation 2 puffs PO Q4H PRN budesonide-formoterol 80-4.5 mcg/actuation (Symbicort) 2 puffs inhalation BID buspirone 5 mg PO TID celecoxib 200 mg PO BID cholecalciferol (vitamin D3) 25 mcg PO DAILY dicyclomine 20 mg PO TID inhalational spacing device (BreatheRite MDI Spacer) As directed loratadine 10 mg PO DAILY losartan 100 mg PO DAILY multivitamin 1 tab PO DAILY ondansetron 4 mg PO Q6H PRN Synthroid (levothyroxine) 100 mcg PO DAILY 90 days NS tizanidine 4 mg PO BID PRN zolpidem 5 mg PO BEDTIME PRN Tobacco use date assessed: 02/26/23 Fall risk assessment: 1 Fall in past year Last assessed Fall Risk: 02/26/23 Dental Screening Dental Screen Date: 02/26/23 Did you have a dental visit in the last 12 months?: Yes Did you have a dental problem in the last 6 months where you did not have access to dental care?: No Was dental information given to patient?: No HPI [facility], Abdominal pain, 02/24 HPI Details 82 year old lady here today for follow-up after recent ER visit, c/o 4 hours of abdominal pain.? Patient states that she has had multiple small-bowel obstructions in the past and it feels very similar.? Patient complaining of nausea, no vomiting.? Patient states that earlier today she took some Mag citrate and she was able to move her bowels but that was before the abdominal pain started.? Denies fever chills, no URI or UTI. CT abdomen pelvis showed no acute findings within the abdomen or pelvis. *? Right hemicolectomy with intact ileocolic anastomosis in the right midabdomen. *? Scattered colonic diverticula without evidence of diverticulitis. ? ? [facility] Medical History (Updated 02/26/23 @ 15:56 by Yadira Sinclair MD) Acquired hypothyroidism Anal irritation Constipation Dyslipidemia Essential hypertension Generalized anxiety disorder Hemorrhoids with complication Hypercalcemia Impaired fasting glucose Insomnia Menopause Mild intermittent asthma Osteopenia of multiple sites Positional lightheadedness Shortness of breath Surgical History History of appendectomy History of colon resection History of lumpectomy History of tonsillectomy Family History Father Unknown family medical history Mother Bowel cancer Daughter Stroke Maternal Aunt Breast cancer Son No problems noted. Son No problems noted. Son No problems noted. Son No problems noted. Daughter No problems noted. Daughter No problems noted. Social History Housing: House Alcohol intake: never Patient Tobacco Use Status: Never used Tobacco e-Cigarette/Vaping Use: Never Used service: No Current occupational status: retired Cognitive needs: No Hearing needs: No Vision needs: No Questionnaire Thrive Questionnaire Date Thrive assessed: 12/11/21 AUDIT C Alcohol Use Questionnaire (AUDIT-C) 1. How often do you have a drink containing alcohol?: Monthly or less 2. How many drinks containing alcohol do you have on a typical day when you are drinking?: 1 or 2 3. How often do you have six or more drinks on one occasion?: Never Total Score: 1 Score Reviewed/Action Taken: Yes BARBARA-7 AMB Questionnaire BARBARA-7 Date BARBARA - 7 assessed: 12/11/21 Source: Developed by Drs. Cm Davison, Christa Saunders, Mateo Kwan and colleagues, with an educational sarah from [employer]. Review of Systems Const All systems reviewed & are unremarkable except as noted in HPI and below Physical exam (Primary Care) Vital Signs: Last Vital Signs Pulse 73 02/26/23 15:23 BP 130/80 02/26/23 15:23 Pulse Ox 95 02/26/23 15:23 Oxygen Delivery Method Room Air 02/26/23 15:23 BMI result Body Mass Index 32.2 Tobacco/Smoking Status: Tobacco use Status Tobacco use date assessed 02/26/23 02/26/23 15:27 Patient Tobacco Use Status Never used Tobacco 02/26/23 15:27 e-Cigarette/Vaping Use Never Used 02/26/23 15:27 Thrive Assessment: Date of Thrive Assessment Date Thrive assessed 12/11/21 02/26/23 15:27 Const Other: Alert oriented x3, no acute distress noted ambulatory normal gait HENMT Mouth: Normal oral and palatal mucosa present, oropharynx normal and moist mucous membranes GI Inspection: Yes normal to inspection Palpation (GI): Soft to palpation, nontender, no guarding and no masses Auscultation: Hyperactive bowel sounds present Assessment and Plan Assessment & Plan (1) Constipation: Code(s): K59.00 - Constipation, unspecified Plan: Advised to continue with dicyclomine 20 mg 1 tablet 3 times a day 15 units before meals, take [id number] Senokot as daily for 1 week to help regulate bowel movements and advised to take MiraLax if no bowel movements after 2 days. Advised also to try taking papaya slice every day which helps with constipation, and drink plenty of water, at least 8 glasses a day Coding Level of Care Code Est Pt Level 3 (68953) Diagnoses Constipation K59.00
== END 2023-02-26 15:57 | disposition home or self-care (01) ==
PROVIDERS: PCP Internal Medicine; Visit Provider Internal Medicine
DX: K59.00 Constipation, unspecified (principal)
CPT/HCPCS: 99213

== ENCOUNTER 2023-05-25 08:33 | Outpatient (REF) | payer MEDICARE, SELFPAY ==
[2023-05-25 08:46] LABS: MANUAL DIFF FLAG NO
[2023-05-25 08:55] LABS: Basophils Absolute Auto 0.1 X10*3/uL (0.0-0.2); Eosinophils Absolute Auto 0.2 X10*3/uL (0.0-0.4); Hematocrit 43.5 % (37.0-47.0); Hemoglobin 14.6 g/dl (12.0-16.0); Imm Gran Abs Auto 0.01 X10*3/uL (0.00-0.03); Imm Gran Pct Auto 0.2 % (0.0-0.4); Lymphocytes Absolute Auto 1.5 X10*3/uL (1.2-4.9); Lymphocytes Percent Auto 29.7 % (20-40); Mean Corpuscular HGB Conc 33.6 g/dl (31.0-35.0); Mean Corpuscular Hemoglobin 31.5 pg (27.0-33.0); Monocytes Absolute Auto 0.7 X10*3/uL (0.1-1.2); Monocytes Percent Auto 12.9 % (2-11); Neutrophils Absolute Auto 2.7 x10*3/uL (2.0-8.3); Neutrophils Percent Auto 52.2 % (45-73); Platelet Count 246 X10*3/uL (160-400); Red Blood Count 4.63 X10*6/uL (4.20-5.50); Red Cell Distribution Width 14.1 % (11.0-16.0); White Blood Count 5.2 X10*3/uL (4.8-10.8)
[2023-05-25 09:23] LABS: Alanine Aminotransferase 20 U/L (0-31); Anion Gap 14 (12-20); Aspartate Amino Transferase 21 U/L (5-31); Blood Urea Nitrogen 16 mg/dL (9-16); Calcium 10.1 mg/dL (8.4-10.2); Carbon Dioxide 26 mmol/L (22-29); Chloride 106 mmol/L (96-108); Cholesterol 224 mg/dL (<200); Estimated Glomerular Filt Rate 59; Glucose Fasting 130 mg/dL (60-99); HDL Cholesterol 60 mg/dL (>40); LDL Cholesterol Calculated 144 mg/dL (<100); Potassium 4.9 mmol/L (3.3-5.1); Sodium 141 mmol/L (135-145); Triglycerides 104 mg/dL (<150)
[2023-05-25 09:39] LABS: Thyroid Stimulating Hormone 4.99 uIU/mL (0.32-4.0)
== END 2023-05-25 08:34 | disposition home or self-care (01) ==
LOC: HO.LAB 08:33
PROVIDERS: PCP Internal Medicine; Visit Provider Internal Medicine
DX: E03.9 Hypothyroidism, unspecified (principal); R06.02 Shortness of breath; J45.20 Mild intermittent asthma, uncomplicated; I10 Essential (primary) hypertension
CPT/HCPCS: 36415; 80048; 80061; 84439; 84443; 84450; 84460; 85025

== ENCOUNTER 2023-05-28 15:45 | Outpatient (REF) | payer MEDICARE, SELFPAY ==
--- NOTE | 2023-05-28 16:46 | PFT_ITS ---
FLOWS: 1. FEV1 139% of predicted at 1.39 L. 2. FVC 99% of predicted at 2.01 L. 3. FEV1 to FVC ratio of 0.69. 4. Positive bronchodilator response. LUNG VOLUMES: 1. Total lung capacity 123% of predicted at 5.59 L. 2. Residual volume 110% of predicted at 2.24 L. 3. Slow vital capacity 138% of predicted at 3.34 L. 4. Expiratory reserve volume 97% of predicted at 0.56 L. 5. Diffusion capacity is mildly decreased, diffusion capacity corrects to normal after adjustment for alveolar ventilation. IMPRESSION: Moderate obstructive reversible ventilatory defect with positive bronchodilator response. Increased total lung capacity suggests hyperinflation. Decreased diffusion capacity suggests emphysema. MD ABEL Martinez/MODL / [id number]
== END 2023-05-28 15:46 | disposition home or self-care (01) ==
LOC: HO.RESP 15:45
PROVIDERS: PCP Internal Medicine; Visit Provider Internal Medicine
DX: J45.20 Mild intermittent asthma, uncomplicated (principal); R06.02 Shortness of breath
CPT/HCPCS: 94010; 94729

== ENCOUNTER → 2023-05-28 16:46 | Outpatient (BNV) | payer MEDICARE, SELFPAY | PROVIDERS: PCP Internal Medicine; Visit Provider Internal Medicine Pulmonary Disease | DX: J45.20 Mild intermittent asthma, uncomplicated (principal) | CPT/HCPCS: 94060; 94727; 94729 ==

== ENCOUNTER 2023-06-23 05:44 | Emergency (ER) | payer MEDICARE, SELFPAY ==
--- NOTE | ~2023-06-23 | CT_ITS ---
EXAMINATION: CT ABDOMEN AND PELVIS WITH CONTRAST CLINICAL INFORMATION: Abdominal pain. Extensive surgical history. COMPARISON: CT abdomen and pelvis 02/24/2023. TECHNIQUE: Multidetector volumetric images were obtained from the superior aspect of the liver through the pubic symphysis following administration 85 mL of Omnipaque 350 intravenous contrast. Sagittal and coronal reformatted images were obtained on the technologist's workstation. Oral contrast: No This CT examination was performed using dose optimization techniques as appropriate, variously including the following: *Automated exposure control *Adjustment of mA and/or kV according to patient size (this includes techniques or standardized protocols for targeted exams where dose is matched to indication/reason for exam; i.e. extremities or head) *Use of iterative reconstruction technique DLP: 893 mGy-cm FINDINGS: LUNG BASES: There is right lower lobe and lingular atelectatic changes. The heart size is enlarged. No pericardial effusion seen. LIVER, GALLBLADDER, AND BILIARY TREE: The liver is normal in size, shape, and attenuation. No focal hepatic lesion or biliary ductal dilatation is present. The gallbladder is unremarkable with no evidence of radiopaque gallstones, gallbladder wall thickening, or obvious pericholecystic inflammatory changes. PANCREAS: Unremarkable. SPLEEN: Unremarkable. ADRENAL GLANDS: Unremarkable. KIDNEYS AND URETERS: The kidneys are normal in size, shape, and attenuation. No hydronephrosis, hydroureter, or calculi seen. No perinephric stranding. There is a 5 mm hypodensity midpole right kidney, likely small cyst.. BLADDER: Unremarkable. GASTROINTESTINAL TRACT: There are multiple dilated air-fluid small bowel loops extending into the pelvis likely involving distal duodenum or proximal ileum. The distal ileal loops are normal caliber. Descending and transverse colon is nondistended. There is a right hemicolectomy with anastomotic site in the right midabdomen where distended small bowel loops extend. Anastomotic the obstruction could be secondary to adhesions at the anastomotic site or along the anterior abdominal wall. It is best visualized on axial slice 41/3 through 46/3. ABDOMINAL WALL: No significant hernia is appreciated. LYMPH NODES: Normal. VASCULAR: Mild arthroscopic changes of abdominal aorta noted without aneurysm. PELVIC VISCERA: Unremarkable. OSSEOUS STRUCTURES: No aggressive lytic or sclerotic process seen there are degenerative disc changes and vacuum disc phenomena throughout lumbar spine. Grade 1 anterolisthesis L4 over L5 is noted. CT/CT abdomen pelvis w IV con IMPRESSION: 1. Multiple dilated qfk-oercr-mqoqub small bowel loops extending into the pelvis. The distal ileal loops are normal caliber. There is a right hemicolectomy with anastomotic site in the right midabdomen. The dilated small bowel loops extend to the anastomotic sites and may be secondary to adhesions at that anastomosis or adhesions along the right anterior abdominal wall. 2. Right lower lobe and lingular atelectasis. 3. Cardiomegaly. 4. Small right renal cyst. 5. Degenerative disc changes throughout lumbar spine with grade 1 anterolisthesis L4 over L5. Fleischner guidelines were followed.
[2023-06-23 05:51] VITALS: BP 148/88; PULSE 65; O2SAT 97
[2023-06-23 05:54] VITALS: BMI 32.0
[2023-06-23 06:09] LABS: MANUAL DIFF FLAG NO
[2023-06-23] MEDS: ondansetron HCL 4 MG/2 ML VIAL IVPUSH (06:10)
[2023-06-23 06:13] VITALS: RESP 18
[2023-06-23] MEDS: Morphine Sulfate 4 MG/ML CARTRIDGE IVPUSH (06:13)
[2023-06-23 06:24] LABS: Alanine Aminotransferase 25 U/L (0-31); Albumin Level 4.1 g/dL (3.5-5.0); Alkaline Phosphatase 56 U/L (39-117); Anion Gap 11 (12-20); Aspartate Amino Transferase 21 U/L (5-31); Bilirubin Direct 0.2 mg/dL (0.0-0.5); Bilirubin Total 0.5 mg/dL (0.0-1.0); Blood Urea Nitrogen 20 mg/dL (9-16); Calcium 10.8 mg/dL (8.4-10.2); Carbon Dioxide 32 mmol/L (22-29); Chloride 101 mmol/L (96-108); Creatinine Clr Calc Pharmacy 44.5; Estimated Glomerular Filt Rate 56; Glucose Random 191 mg/dL (60-115); Lipase 14 U/L (8-78); Sodium 140 mmol/L (135-145); Total Protein 7.1 g/dL (6.5-8.0)
[2023-06-23 06:31] LABS: Basophils Percent Auto 0.5 % (0-2); Eosinophils Percent Auto 0.2 % (0-4); Hematocrit 41.5 % (37.0-47.0); Hemoglobin 13.9 g/dl (12.0-16.0); Imm Gran Abs Auto 0.03 X10*3/uL (0.00-0.03); Imm Gran Pct Auto 0.4 % (0.0-0.4); Lymphocytes Absolute Auto 0.9 X10*3/uL (1.2-4.9); Lymphocytes Percent Auto 11.2 % (20-40); Mean Corpuscular HGB Conc 33.5 g/dl (31.0-35.0); Mean Corpuscular Hemoglobin 31.6 pg (27.0-33.0); Mean Corpuscular Volume 94.3 fL (80.0-98.0); Mean Platelet Volume 10.3 fL (9.4-12.3); Monocytes Absolute Auto 0.4 X10*3/uL (0.1-1.2); Monocytes Percent Auto 4.3 % (2-11); Neutrophils Percent Auto 83.4 % (45-73); Platelet Count 236 X10*3/uL (160-400); White Blood Count 8.4 X10*3/uL (4.8-10.8)
--- NOTE | 2023-06-23 06:37 | ED_ITS ---
HPI - General Adult General Chief complaint: Abdominal Pain Stated complaint: abdominal pain Time Seen by Provider: 06/23/23 06:36 Source: patient and EMS Mode of arrival: EMS Limitations: no limitations History of Present Illness HPI narrative: Patient is an 82 year old assigned female at with a history of asthma and anxiety presenting to the emergency department today with epigastric pain. Patient states that she has an extensive abdominal surgical history. Patient states that she woke up around midnight with this epigastric pain that has not resolved. Patient denies any history of GERD. Patient states her last bowel movement was this morning and was normal. Patient denies any dizziness, lightheadedness, fever, chills, blurry vision, double vision, loss of vision, chest pain, difficulty breathing, shortness of breath, back pain, night sweats, pain with urination, increased urinary frequency, increased urinary urgency, blood in her urine or stool, syncope or a near syncopal episode, recent trauma or falls, bowel incontinence, bladder incontinence, bowel retention, bladder retention, or any other complaints at this time. Onset (ago): hour(s) Location: abdomen Radiation: non-radiation Severity: mild Severity scale (1-10): 3 Quality: aching and dull Pain Consistency: constant Relieving factors: none Exacerbating factors: none Associated symptoms: nausea/vomiting Treatments prior to arrival: none Related Data Home Medications Medication Instructions Recorded Confirmed loratadine 10 mg tablet 10 mg PO DAILY 11/29/20 11/08/22 multivitamin 1 tab PO DAILY 11/29/20 11/08/22 Previous Rx's Medication Instructions Recorded cholecalciferol (vitamin D3) 25 25 mcg PO DAILY #90 caps 01/11/21 mcg (1,000 unit) capsule albuterol sulfate 90 mcg/actuation 2 puff PO Q4H PRN for wheezing 06/27/22 aerosol inhaler #8.5 grams buspirone 5 mg tablet 5 mg PO TID #270 tabs 11/21/22 inhalational spacing device #1 ea 11/21/22 (BreatheRite MDI Spacer) budesonide-formoterol HFA 80 2 puff inhalation BID #30.6 grams 01/29/23 mcg-4.5 mcg/actuation aerosol inhaler (Symbicort) zolpidem 5 mg tablet 5 mg PO BEDTIME PRN insomnia #30 01/29/23 tabs dicyclomine 20 mg tablet 20 mg PO TID #90 tabs 02/19/23 ondansetron 4 mg disintegrating 4 mg PO Q6H PRN nausea and 02/24/23 tablet vomiting #14 tabs tizanidine 4 mg tablet 4 mg PO BID PRN muscle spasticity 03/02/23 #20 tabs Synthroid 100 mcg tablet 100 mcg PO DAILY 90 days #90 tabs 05/06/23 (levothyroxine) losartan 100 mg tablet 100 mg PO DAILY #90 tabs 05/21/23 celecoxib 200 mg capsule 200 mg PO BID #90 caps 06/01/23 Allergies Allergy/AdvReac Type Severity Reaction Status Date / Time Penicillins [PENICILLINS] Allergy Intermediate HIVES Verified 02/26/23 15:41 pneumococcal vaccine Allergy Unknown hives Verified 02/26/23 15:41 sulfamethoxazole AdvReac Intermediate STOMACH Verified 02/26/23 15:41 [From BACTRIM] UPSET [id number] Reductase AdvReac Mild MUSCLE PAIN Verified 02/26/23 15:41 Inhibitor [[id number]-RCC REDUCTASE INHIBITOR] simvastatin AdvReac Unknown muscle pain Verified 02/26/23 15:41 Review of Systems 2 Constitutional: Constitutional: Reports no additional constitutional complaints, Denies chills, Denies fever(s) and Denies night sweats Eyes: Eyes: Reports no additional eye complaints, Denies blurry vision, Denies change in vision, Denies diplopia, Denies eye discharge, Denies loss of vision and Denies eye pain ENT: Denies dizziness Cardiovascular: Cardiovascular: Reports no additional cardiovascular complaints, Denies chest pain, Denies lightheadedness, Denies Loss of Consciousness and Denies dyspnea Respiratory: Respiratory: Reports no additional respiratory complaints and Denies dyspnea Gastrointestinal: Gastrointestinal: Reports no additional gastrointestinal complaints, Reports abdominal pain, Denies melena, Denies hematochezia, Denies change in bowel habits, Denies change in stool character, Reports nausea and Reports vomiting Genitourinary: Genitourinary: Denies hematuria, Denies urinary frequency, Denies dysuria, Denies urinary incontinence, Denies urinary hesitancy and Denies urinary urgency Musculoskeletal: Musculoskeletal: Reports no additional musculoskeletal complaints, Denies numbness and Denies tingling Neurologic: Denies dizziness, Denies loss of vision, Denies numbness and Denies tingling Psychiatric: Psychiatric: Reports no additional psychiatric complaints Endocrine: Endocrine: Reports no additional endocrine complaints Hematologic/Lymphatic: Hematologic/Lymphatic: Reports no additional hematologic/lymphatic complaints Allergic/Immunologic: Allergic/Immunologic: Reports no additional allergic/immunologic complaints PMFSH Past Medical History Attestation statement: The following information was validated with the patient. Source: old records reviewed and nursing notes reviewed Medical History Swelling of right lower extremity Constipation Shortness of breath Hemorrhoids with complication Anal irritation Insomnia Osteopenia of multiple sites Hypercalcemia Generalized anxiety disorder Mild intermittent asthma Positional lightheadedness Impaired fasting glucose Menopause Acquired hypothyroidism Dyslipidemia Essential hypertension Surgical History History of tonsillectomy History of lumpectomy History of colon resection History of appendectomy Family History Family History Father Unknown family medical history Mother Bowel cancer Daughter Stroke Maternal Aunt Breast cancer Son No problems noted. Son No problems noted. Son No problems noted. Son No problems noted. Daughter No problems noted. Daughter No problems noted. Social History Housing: House Alcohol intake: never Patient Tobacco Use Status: Never used Tobacco e-Cigarette/Vaping Use: Never Used Advance Directives: Yes Advance Directives on File: Yes Advance Directives Date on File: 12/17/21 service: No Current occupational status: retired Cognitive needs: No Hearing needs: No Vision needs: No Physical Exam ED Vital Signs: Vital Signs - 24 hr 06/23/23 06:13 06/23/23 07:16 06/23/23 10:32 Temperature 98.6 F Pulse Rate 70 75 Respiratory Rate 18 18 18 Blood Pressure 125/72 148/84 H Pulse Oximetry 94 98 Oxygen Delivery Method Room Air Room Air BMI result Body Mass Index 32.0 Const General: cooperative, no acute distress, alert and awake Nutritional Appearance: well nourished Orientation/consciousness: patient oriented x3 Limitations: no limitations HENMT Head: Yes normal to inspection and Yes atraumatic Ears: hearing grossly normal bilaterally and external ears normal General nose exam: Normal external nose present, no nasal discharge noted and no epistaxis Face and sinus: Yes normal facial exam, No abrasion and No laceration Mouth: Normal oral and palatal mucosa present, no drooling and no muffled voice Eyes General: appearance normal, both eyes and all related structures Periorbital: periorbital findings normal Eyelids: Yes eyelids normal Conjunctivae: conjunctivae normal Pupils: Equal, round and reactive pupils present EOM: EOMs intact bilaterally Neck Neck: Yes normal visual inspection, Yes full ROM and Yes no lymphadenopathy Chest Chest palpation & inspection: normal inspection of the chest Resp Effort & Inspection: normal respiratory effort and able to speak in complete sentences GI Other: multiple surgical scars including a large central surgical scar Palpation (GI): Soft to palpation, not firm, nontender and no guarding Neuro General: patient oriented x3 and moves all extremities Cranial nerves: Yes Equal, round and reactive pupils present Cognition (Neuro): normal cognition Motor exam (neuro): 5/5 motor strength present throughout Sensory Exam: Normal double simultaneous stimulation for sensation Coordination: [id number] test normal Extrem General: Yes normal to inspection, Yes full ROM and Yes capillary refill normal Psych Appearance: grossly normal Mental Status: mental status grossly normal Affect: normal affect Attitude: cooperative Thought process: Normal thought process present Thought content: Normal thought content present Insight: Good insight present (Psych) Medications Administered Discontinued Medications Generic Name Dose Route Start Last Admin Trade Name David PRN Reason Stop Dose Admin Al Hydroxide/Mg Hydroxide 15 ml 06/23/23 06:49 06/23/23 07:10 Magnesium Hydrox/Alum Hydrox 30 Ml Oral.Susp PO 06/23/23 06:50 15 ml ONCE ONE Administration Iohexol 85 ml 06/23/23 08:34 06/23/23 08:35 Iohexol 350 Mg/Ml 100 Ml Infus..Btl IV 06/23/23 08:35 85 ml ONCE ONE Administration Morphine Sulfate 4 mg 06/23/23 06:09 06/23/23 06:13 Morphine Sulfate 4 Mg/Ml Cartridge IVPUSH 06/23/23 06:10 4 mg ONCE ONE Administration Protocol Ondansetron HCl 4 mg 06/23/23 05:57 06/23/23 06:10 Ondansetron Hcl 4 Mg/2 Ml Vial IVPUSH 06/23/23 05:58 4 mg ONCE ONE Administration Pantoprazole Sodium 40 mg 06/23/23 06:49 06/23/23 07:10 Pantoprazole Sodium 40 Mg/10 Ml Vial IVPUSH 06/23/23 06:50 40 mg ONCE ONE Administration Medical Decision Making Medical Decision Making [facility] Narrative: Patient is an 82 year old assigned female at with a history of asthma, anxiety, and multiple abdominal surgeries presenting to the emergency department today with epigastric pain. Patient's physical exam was as noted in the physical exam portion of this note. Patient's blood work was unremarkable. Patient's urine showed no acute process. Patient's EKG was unremarkable. Patient's abdomen/pelvis CT showed multiple dilated [id number] small bowel loops extending into the pelvis with the loops extending to the anastomotic site which may be secondary to adhesions. I consulted my attending, Dr. Damon, who recommended consulting general surgery. I consulted with general surgery who recommended the patient discharging home with a bland / light diet and strict return precautions. Patient had a bowel movement while in the department and is not clinically suspicious for an obstruction at this time. I explained my physical exam findings as well as all test results to the patient and the patient's . I answered all questions asked by the patient and the patient's . Patient received Maalox and Protonix which she stated helped her symptoms significantly. I stressed the importance of the patient taking her medication as prescribed. I stressed the importance of the patient following up with her primary care provider and GI specialist. I stressed the importance of the patient returning to the emergency department immediately if her symptoms were to worsen or if she were to develop any dizziness, shortness of breath, difficulty breathing, chest pain, blurry vision, loss of vision, nausea, vomiting, abdominal pain, fever, chills, back pain, or any other complaints. Patient and the patient's verbalized agreement and understanding with this treatment plan and discharge. Differential Diagnosis Differential Diagnoses: The differential diagnosis associated with the presentation includes Abdominal pain Epigastric pain GERD Admission/Observation Consideration of admission/observation: Escalation of care including admission/observation considered Patient would have been admitted to the hospital had her work up had any findings where hospital admission was appropriate and her clinical presentation warranted hospital admission. Consult Healthcare Provider Management of the patient was discussed with: [employer] (spoke with the general surgeon as noted in the MDM rationale portion of this note.) Lab Data [facility] Lab Attestation statement: I reviewed the patient's lab results. My interpretation of these studies and their corresponding values is that they are grossly normal. 06/23/23 06:04 06/23/23 06:04 Labs: Lab Results 06/23/23 06/23/23 06/23/23 Range/Units 06:04 07:03 09:50 WBC 8.4 (4.8-10.8) X10*3/uL RBC 4.40 (4.20-5.50) X10*6/uL Hgb 13.9 (12.0-16.0) g/dl Hct 41.5 (37.0-47.0) % MCV 94.3 (80.0-98.0) fL MCH 31.6 (27.0-33.0) pg MCHC 33.5 (31.0-35.0) g/dl RDW 14.0 (11.0-16.0) % Plt Count 236 (160-400) X10*3/uL MPV 10.3 (9.4-12.3) fL Immature Gran % (Auto) 0.4 (0.0-0.4) % Neut % (Auto) 83.4 H (45-73) % Lymph % (Auto) 11.2 L (20-40) % Bacon % (Auto) 4.3 (2-11) % Eos % (Auto) 0.2 (0-4) % Baso % (Auto) 0.5 (0-2) % Lymph # (Auto) 0.9 L (1.2-4.9) X10*3/uL Bacon # (Auto) 0.4 (0.1-1.2) X10*3/uL Eos # (Auto) 0.0 (0.0-0.4) X10*3/uL Baso # (Auto) 0.0 (0.0-0.2) X10*3/uL Abs Immat Gran (auto) 0.03 (0.00-0.03) X10*3/uL Absolute Neuts (auto) 7.0 (2.0-8.3) x10*3/uL Absolute Nucleated RBC 0.000 (0.0-0.012) X10*3/uL Nucleated RBC % (auto) 0.0 (0.0-0.2) /100WBC Sodium 140 (135-145) mmol/L Potassium 4.0 (3.3-5.1) mmol/L Chloride 101 (96-108) mmol/L Carbon Dioxide 32 H (22-29) mmol/L Anion Gap 11 L (12-20) BUN 20 H (9-16) mg/dL Creatinine 0.95 (0.5-1.4) mg/dL Estim Creat Clear Calc 44.5 Estimated GFR 56 Random Glucose 191 H (60-115) mg/dL Calcium 10.8 H D (8.4-10.2) mg/dL Total Bilirubin 0.5 (0.0-1.0) mg/dL Direct Bilirubin 0.2 (0.0-0.5) mg/dL AST 21 (5-31) U/L ALT 25 (0-31) U/L Alkaline Phosphatase 56 (39-117) U/L Troponin I High Sens 3.3 (<3.5-17.0) ng/L Total Protein 7.1 (6.5-8.0) g/dL Albumin 4.1 (3.5-5.0) g/dL Lipase 14 (8-78) U/L Urine Color Yellow Urine Appearance Turbid Urine pH 8.5 (5.0-9.0) Ur Specific [place] >= 1.030 H (1.005-1.025) Urine Protein Negative (Neg-Trace) mg/dL Urine Glucose (UA) Negative (Negative) mg/dL Urine Ketones Negative (Negative) mg/dL Urine Blood Negative (Negative) Urine Nitrite Negative (Negative) Ur Leukocyte Esterase Negative (Negative) Independent Interpretation I performed an independent interpretation of an: EKG and CT Scan Interpretation: My interpretation is in agreement with the radiologist's impression of this imaging study. - EXAMINATION: CT ABDOMEN AND PELVIS WITH CONTRAST CLINICAL INFORMATION: Abdominal pain. Extensive surgical history. COMPARISON: CT abdomen and pelvis 02/24/2023. TECHNIQUE: Multidetector volumetric images were obtained from the superior aspect of the liver through the pubic symphysis following administration 85 mL of Omnipaque 350 intravenous contrast. Sagittal and coronal reformatted images were obtained on the technologist's workstation. Oral contrast: No This CT examination was performed using dose optimization techniques as appropriate, variously including the following: *Automated exposure control *Adjustment of mA and/or kV according to patient size (this includes techniques or standardized protocols for targeted exams where dose is matched to indication/reason for exam; i.e. extremities or head) *Use of iterative reconstruction technique DLP: 893 mGy-cm FINDINGS: LUNG BASES: There is right lower lobe and lingular atelectatic changes. The heart size is enlarged. No pericardial effusion seen. LIVER, GALLBLADDER, AND BILIARY TREE: The liver is normal in size, shape, and attenuation. No focal hepatic lesion or biliary ductal dilatation is present. The gallbladder is unremarkable with no evidence of radiopaque gallstones, gallbladder wall thickening, or obvious pericholecystic inflammatory changes. PANCREAS: Unremarkable. SPLEEN: Unremarkable. ADRENAL GLANDS: Unremarkable. KIDNEYS AND URETERS: The kidneys are normal in size, shape, and attenuation. No hydronephrosis, hydroureter, or calculi seen. No perinephric stranding. There is a 5 mm hypodensity midpole right kidney, likely small cyst.. BLADDER: Unremarkable. GASTROINTESTINAL TRACT: There are multiple dilated air-fluid small bowel loops extending into the pelvis likely involving distal duodenum or proximal ileum. The distal ileal loops are normal caliber. Descending and transverse colon is nondistended. There is a right hemicolectomy with anastomotic site in the right midabdomen where distended small bowel loops extend. Anastomotic the obstruction could be secondary to adhesions at the anastomotic site or along the anterior abdominal wall. It is best visualized on axial slice 41/3 through 46/3. ABDOMINAL WALL: No significant hernia is appreciated. LYMPH NODES: Normal. VASCULAR: Mild arthroscopic changes of abdominal aorta noted without aneurysm. PELVIC VISCERA: Unremarkable. OSSEOUS STRUCTURES: No aggressive lytic or sclerotic process seen there are degenerative disc changes and vacuum disc phenomena throughout lumbar spine. Grade 1 anterolisthesis L4 over L5 is noted. CT/CT abdomen pelvis w IV con IMPRESSION: 1. Multiple dilated [id number] small bowel loops extending into the pelvis. The distal ileal loops are normal caliber. There is a right hemicolectomy with anastomotic site in the right midabdomen. The dilated small bowel loops extend to the anastomotic sites and may be secondary to adhesions at that anastomosis or adhesions along the right anterior abdominal wall. 2. Right lower lobe and lingular atelectasis. 3. Cardiomegaly. 4. Small right renal cyst. 5. Degenerative disc changes throughout lumbar spine with grade 1 anterolisthesis L4 over L5. Fleischner guidelines were followed. Dictated By: Peter Rodrigues MD Signed By: Electronically signed by Peter Rodrigues MD 06/23/23 0927 - Vent. Rate: 065 BPM Atrial Rate: 065 BPM P-R Int: 162 ms QRS Dur: 088 ms QT Int: 432 ms P-R-T Axes: 034 -02 066 degrees QTc Int: 449 ms Normal sinus rhythm Possible Left atrial enlargement Left ventricular hypertrophy ( R in aVL , Gopal product ) Nonspecific ST and T wave abnormality Abnormal ECG When compared with ECG of 20-OCT-2018 21:38, Nonspecific T wave abnormality, improved in Lateral leads DD/ [id number] Radiology Impression Discussion of test interpretation with radiology: I have reviewed the radiologist's reading. Independent Historian Clinical information obtained from an independent historian. History obtained from or confirmed by: Spouse (patient's provided additional history and confirmed the history provided by the patient and EMS) and EMS (EMS provided additional history and confirmed the history provided by the patient and the patient's .) Critical Care Time Critical Care Time Critical Care Time: Yes Total Critical Care Time: 45 Attestation: I spent 45 minutes of Critical Care Time with this patient. This does not include time spent on separately reported billable procedures. Discharge Plan Discharge Clinical Impression: Acute epigastric pain Patient Disposition: Home, Self-Care Instructions: Diet for Stomach Ulcers and Gastritis (ED), Abdominal Pain (ED) Additional Instructions: Start with a LIGHT and BLAND diet. Have a low threshold to return to the emergency department. Follow up with your primary care provider and a GI specialist. Return to the emergency department immediately if your symptoms worsen or if you develop any dizziness, shortness of breath, difficulty breathing, chest pain, blurry vision, loss of vision, nausea, vomiting, abdominal pain, fever, chills, back pain, or any other complaints. Prescriptions: No Action cholecalciferol (vitamin D3) 25 mcg (1,000 unit) capsule 25 mcg PO DAILY Qty: 90 1RF albuterol sulfate 90 mcg/actuation HFA aerosol inhaler 2 puff PO Q4H PRN (Reason: for wheezing) Qty: 8.5 4RF budesonide-formoterol [Symbicort] 80-4.5 mcg/actuation HFA aerosol inhaler 2 puff inhalation BID Qty: 30.6 1RF zolpidem 5 mg tablet 5 mg PO BEDTIME PRN (Reason: insomnia) Qty: 30 0RF dicyclomine 20 mg tablet 20 mg PO TID Qty: 90 3RF tizanidine 4 mg tablet 4 mg PO BID PRN (Reason: muscle spasticity) Qty: 20 0RF Rx Instructions: 1/2 tablet po levothyroxine [Synthroid] 100 mcg tablet 100 mcg PO DAILY 90 Days Qty: 90 1RF losartan 100 mg tablet 100 mg PO DAILY Qty: 90 1RF celecoxib 200 mg capsule 200 mg PO BID Qty: 90 0RF ondansetron 4 mg tablet,disintegrating 4 mg PO Q6H PRN (Reason: nausea and vomiting) Qty: 14 0RF multivitamin Tablet 1 tab PO DAILY loratadine 10 mg tablet 10 mg PO DAILY (DME) BreatheRite MDI Spacer Spacer See Rx Instructions .Route Qty: 1 0RF Rx Instructions: As directed buspirone 5 mg tablet 5 mg PO TID Qty: 270 1RF Referrals: [facility] [Provider Group] (Call to establish and follow up with a GI specialist.) Yadira Sinclair MD [Primary Care Provider] - Interventions: ED Discharge Assessment Last Done: 06/23/23 10:08 Print Language: Uzbek
--- NOTE | 2023-06-23 06:50 | ECG_ITS ---
Test Reason : EPIGASTRIC PAIN Blood Pressure : / mmHG Vent. Rate : 065 BPM Atrial Rate : 065 BPM P-R Int : 162 ms QRS Dur : 088 ms QT Int : 432 ms P-R-T Axes : 034 -02 066 degrees QTc Int : 449 ms Normal sinus rhythm Possible Left atrial enlargement Left ventricular hypertrophy ( R in aVL , Gopal product ) Nonspecific ST and T wave abnormality Abnormal ECG When compared with ECG of 20-OCT-2018 21:38, Nonspecific T wave abnormality, improved in Lateral leads Referred By: Diana Villavicencio Electronically Signed By:KANDACE MARTIN MD
[2023-06-23] MEDS: Pantoprazole Sodium 40 MG/10 ML VIAL IVPUSH (07:10)
[2023-06-23] MEDS: Magnesium Hydrox/Alum Hydrox 30 ML ORAL.SUSP 15 ML PO (07:10)
[2023-06-23 07:16] VITALS: BP 125/72; PULSE 70; RESP 18; TEMP 37; O2SAT 94
--- NOTE | 2023-06-23 07:17 | PC.NURSE ---
Assumed care of pt at this time.
[2023-06-23 07:41] LABS: Troponin-I High Sensitivity 3.3 ng/L (<3.5-17.0)
[2023-06-23] MEDS: iohexoL 350 MG/ML 100 ML INFUS..BTL 85 ML IV (08:35)
[2023-06-23 09:58] LABS: Appearance Urine Turbid; Color Urine Yellow; Glucose Urine UA Negative (Negative); Leukocyte Esterase Urine Negative (Negative); Nitrite Urine Negative (Negative); PH 8.5 (5.0-9.0); Specific Gravity - Urine >= 1.030 (1.005-1.025); Urine Blood Negative (Negative); Urine Ketones Negative (Negative); Urine Protein Negative (Neg-Trace)
[2023-06-23 10:32] VITALS: BP 148/84; PULSE 75; RESP 18; O2SAT 98
== END 2023-06-23 10:08 | disposition home or self-care (01) ==
PROVIDERS: Physician Assistant Medical; Emergency Provider Emergency Medicine; PCP Internal Medicine
DX: R10.13 Epigastric pain (principal)
CPT/HCPCS: 36415; 74177; 80048; 80076; 81003; 83690; 84484; 85025; 93005; 96374; 96375; 99284; 99285; C9113; J2270; J2405; Q9967

== ENCOUNTER 2023-07-08 13:36 | Outpatient (AMB) | payer MEDICARE, SELFPAY ==
--- NOTE | 2023-07-08 13:50 | A.OFFVIS_ITS ---
Intake Vital Signs 07/08/23 13:51 Height 5 ft 2 in Weight 175 lb 8 oz BMI 32.1 BP 160/88 H Blood Pressure Location Rt brachial Position Sitting Pulse 78 Pulse Source Pulse Oximeter Pulse Oximetry (%) 99 Oxygen Delivery Method Room Air Intake Visit Reasons: SWV [id number] Allergies Penicillins [PENICILLINS] Allergy (Intermediate, Verified 07/08/23 14:09) HIVES pneumococcal vaccine Allergy (Unknown, Verified 07/08/23 14:09) hives sulfamethoxazole [From BACTRIM] Adverse Reaction (Intermediate, Verified 07/08/23 14:09) STOMACH UPSET Yesgzfm-ZAZ-AxY Reductase Inhibitor [ZNCQCFY-HKF-AHU REDUCTASE INHIBITOR] Adverse Reaction (Mild, Verified 07/08/23 14:09) MUSCLE PAIN simvastatin Adverse Reaction (Unknown, Verified 07/08/23 14:09) muscle pain Medication List - Last Reconciled 07/08/23 by Yadira Sinclair MD albuterol sulfate 90 mcg/actuation 2 puffs PO Q4H PRN budesonide-formoterol 80-4.5 mcg/actuation (Symbicort) 2 puffs inhalation BID celecoxib 200 mg PO BID cholecalciferol (vitamin D3) 25 mcg PO DAILY inhalational spacing device (BreatheRite MDI Spacer) As directed loratadine 10 mg PO DAILY losartan 100 mg PO DAILY multivitamin 1 tab PO DAILY Synthroid (levothyroxine) 100 mcg PO DAILY 90 days NS tafluprost (PF) 0.0015% (Zioptan (PF)) drps ophthalmic (eye) DAILY HPI SWV [id number] HPI Details AWV ?82 year year old lady with osteoarthritis, osteopenia of multiple sites, generalized anxiety disorder, mild intermittent asthma, prediabetes, acquired hypothyroidism and essential hypertension, presents for her subsequent? Annual Wellness Visit. She is up-to-date with her screening mammogram, no longer needs to have a screening colonoscopy done per her GI. Is up-to-date with her flu vaccine, pneumococcal vaccination, shingles vaccine, and COVID vaccine including booster. She has had lipid screening and screening for diabetes mellitus, done earlier this year showed normal findings ? Medical / Social History Reviewed? Past Medical History ?Yes . ? [place] of Care / Care Team list updated ?Yes . ? Surgical/Hospitalization History ?Yes . ? Current Medications (including OTC and supplements) ?Yes . ? Family History ?Yes . ? Tobacco Control form ?Yes . ? AUDIT-C (Alcohol use) form ?Yes . ? Illicit drug use in Social History ?Yes . ? Current diagnosis of depression? ?No ? Appropriate PHQ2/PHQ9 completed ?Yes . ? Data entered by ?[employer] and reviewed by provider ? Fall Risk ? Fall History? Have you had any falls with injury in the past year? ?No . ? Have you had two or more falls in the past year? ?No . ? Fall Risk Assessment: ?No falls in the past year . ? HRA filled out by the patient, reviewed by Provider and scanned. ?AWV ? Balance? [place] ?Yes . ? Tandem walk ?Yes . ? Walk and Turn ?Yes . ? Rise from sit to stand ?Yes . ?Vision? Corrective lens ?Yes ? Vision screen ? Up-to-date,Dr [facility]id[facility] R[facility] at [facility] ?Hearing? Whisper test ?pass . ?Written Plan?Completed. See Patient Documents.? [facility] Medical History (Updated 08/15/23 @ 02:29 by Yadira Sinclair MD) Hemorrhoids with complication Insomnia Osteopenia of multiple sites Hypercalcemia Generalized anxiety disorder Mild intermittent asthma Positional lightheadedness Impaired fasting glucose Menopause Acquired hypothyroidism Dyslipidemia Essential hypertension Surgical History History of tonsillectomy History of lumpectomy History of colon resection History of appendectomy Family History Father Unknown family medical history Mother Bowel cancer Daughter Stroke Maternal Aunt Breast cancer Son No problems noted. Son No problems noted. Son No problems noted. Son No problems noted. Daughter No problems noted. Daughter No problems noted. Social History Housing: House Alcohol intake: never Patient Tobacco Use Status: Never used Tobacco e-Cigarette/Vaping Use: Never Used Advance Directives Date on File: 12/17/21 service: No Current occupational status: retired Cognitive needs: No Hearing needs: No Vision needs: No Questionnaire Medicare Wellness Checkup What is your age?: 80 or older What gender do you identify with?: female During the past 4 weeks, how much have you been bothered by emotional problems such as feeling anxious, depressed, irritable, sad or downhearted, and blue?: slightly During the past 4 weeks, has your physical & emotional health limited your social activities with family, friends, neighbors, or groups?: not at all During the past 4 weeks, how much bodily pain have you generally had?: moderate pain During the past 4 weeks, was someone available to help you if you needed & wanted help?: yes, as much as I wanted During the past 4 weeks, what was the hardest physical activity you could do for at least 2 minutes?: light Can you get to places out of walking distance without help? (For eg., can you travel alone on buses, taxis or drive your car?): Yes Can you go shopping for groceries or clothes without someone's help?: Yes Can you prepare your own meals?: Yes Can you do your housework without help?: Yes Because of any health problems, do you need the help of another person with your personal care needs such as eating, bathing, dressing or getting around the house?: No Can you handle your own money without help?: Yes During the past 4 weeks, how would you rate your health in general?: good During the past 4 weeks how have things been going for you?: pretty well Are you having difficulties driving your car?: no Do you always fasten your seat belt when you are in a car?: yes, usually During past 4 weeks, have you been bothered by the following: never: Sexual problems?, Trouble eating well?, Teeth or denture problems? and Problems using the telephone? and sometimes: Falling or dizzy when standing up and Tiredness or fatigue? Have you fallen 2 or more times in the past year?: Yes Are you afraid of falling?: No Are you a smoker?: no During the past 4 weeks, how many drinks of wine, beer, or other alcoholic beverages did you have?: 1 drink or less per week Do you exercise for about 20 minutes 3 or more times a week?: yes, most of the time Have you been given information to help with the following?: no: Hazards in your house that might hurt you? and no: Keeping track of your medications? How often do you have trouble taking medicines the way you have been told to take them?: I always take medicine as prescribed How confident are you that you can control & manage most of your health problems?: somewhat confident What is your race?: White Mini Mental State Exam (MMSE) Orientation What is the (year) (season) (date) (day) (month)?: year (2022), season (Fall), date (07/08/2023), day (Thursday) and month (June) Where are we (state) (county) (town or city) (hospital) (floor)?: state ([place]), county ([place]), town or city ([place]) and hospital/clinic ([facility]) Score Score: 9 Activity of Daily Living Bathing - sponge bath, tub bath or shower: receives no assistance (gets in/out by self, if usual bathing means Dressing - getting clothes from closets & drawers, including inner/outer garments & fasteners.: gets clothes & gets completely dressed without help Toileting - going to the 'toilet room' for urine/bowel elimination & cleaning self/arranging clothes: goes to toilet room, cleans self, arranges clothes without help Transfer: moves in & out of bed and chair without help (may use support object) Continence: controls urination/bowel movements completely by self Feeding: feeds self without help Total Score: 0 Information obtained from: patient Using telephone: independent Traveling: independent Shopping: independent Preparing meals: independent Housework: independent Taking medicine: independent Managing money: independent PHQ-9 Over the last 2 weeks, how often have you been bothered by any of the following problems? 1. Little interest or pleasure in doing things: not at all 2. Feeling down, depressed, or hopeless: not at all 3. Trouble falling or staying asleep, or sleeping too much: several days 4. Feeling tired or having little energy: several days 5. Poor appetite or overeating: several days 6. Feeling bad about yourself - or that you are a failure or have let yourself or your family down: not at all 7. Trouble concentrating on things, such as reading the newspaper or watching television: not at all 8. Moving or speaking so slowly that other people could have noticed. Or the opposite - being so fidgety or restless that you have been moving around a lot more than usual: not at all 9. Thoughts that you would be better off or of hurting yourself in some way: not at all Total score: 3 Depression Screening Interpretation: Negative Depression Screening Done: Yes 62174 - PHQ-9 Billing: Yes Source: Developed by Drs. Cm Davison, Christa Saunders, Mateo Kwan and colleagues, with an educational sarah from [employer]. Physical Exam Vital Signs: Last Vital Signs Pulse 78 07/08/23 13:51 BP 160/88 H 07/08/23 13:51 Pulse Ox 99 07/08/23 13:51 Oxygen Delivery Method Room Air 07/08/23 13:51 BMI result Body Mass Index 32.1 Results AMB Hemoglobin A1c AMB Hemoglobin A1c 5.9 % Last Edit by Padma Means CMA on 07/08/23 14: 34 Results Reviewed Results Reviewed: Laboratory Last Values Hgb A1c (Clinic) 5.9 % (4.0-6.0) 07/08/23 14:19 Assessment & Plan Assessment & Plan (1) Encounter for subsequent annual wellness visit (AWV) in Medicare patient: Code(s): Z00.00 - Encounter for general adult medical examination without abnormal findings Plan: Medical wellness checklist reviewed, discussed with patient and updated. (2) Acquired hypothyroidism: Code(s): E03.9 - Hypothyroidism, unspecified Plan: Currently on Synthroid 100 mcg daily (3) Essential hypertension: Code(s): I10 - Essential (primary) hypertension Plan: Taking losartan 100 mg daily (4) Impaired fasting glucose: Code(s): R73.01 - Impaired fasting glucose Plan: Has elevated fasting glucose in the. Impaired glucose metabolism O2 at risk for developing diabetes mellitus type 2, as well as heart attack and stroke later on. Lifestyle changes at just weight loss, healthy eating habits, and regular exercise are important, and can prevent the progression to diabetes (5) Mild intermittent asthma: Code(s): J45.20 - Mild intermittent asthma, uncomplicated Plan: Continue on Symbicort and albuterol inhaler as needed (6) Generalized anxiety disorder: Code(s): F41.1 - Generalized anxiety disorder Plan: Discussed other ways to relieve stress including : exercise or a massage, Get enough rest, Avoid alcohol, caffeine, nicotine, and illegal drugs which can increase your anxiety level and cause sleep problems. (7) Osteopenia of multiple sites: Code(s): M85.89 - Other specified disorders of bone density and structure, multiple sites Plan: Continue taking vitamin-D 3 supplements and taking adequate calcium from dietary sources as well as doing regular weight-bearing exercise Orders: Orders AMB Hemoglobin A1c 07/08/23 Z13.9 - Encounter for screening, unspecified Medications: New tafluprost (PF) 0.0015% (Zioptan (PF)) drps ophthalmic (eye) DAILY Quality Reporting (2019) Depression/Bipolar (159/160/161/177) PHQ-9: Total score: 3 Coding Level of Care Code Medicare Subsequent (G0439) Diagnoses Encounter for subsequent annual wellness visit (AWV) in Medicare patient Z00.00 Acquired hypothyroidism E03.9 Essential hypertension I10 Impaired fasting glucose R73.01 Mild intermittent asthma J45.20 Generalized anxiety disorder F41.1 Osteopenia of multiple sites M85.89 CPT Codes Advance Care Planning - Time spent: 1-15 minutes, on File ([id number]) Advance Care Planning Advance Care Planning discussion: Completed/Scanned Date of discussion: 07/08/23 Who was present: Patient Forms completed: MOLST Time spent: 1-15 minutes, on File Actual minutes spent: 15
[2023-07-08 13:51] VITALS: BP 160/88; PULSE 78; O2SAT 99; BMI 32.1
== END 2023-07-08 16:10 | disposition home or self-care (01) ==
PROVIDERS: PCP Internal Medicine; Visit Provider Internal Medicine
DX: Z00.00 Encounter for general adult medical examination without abnormal findings (principal); E03.9 Hypothyroidism, unspecified; I10 Essential (primary) hypertension; R73.01 Impaired fasting glucose; J45.20 Mild intermittent asthma, uncomplicated; F41.1 Generalized anxiety disorder; M85.89 Other specified disorders of bone density and structure, multiple sites
CPT/HCPCS: 1123F; 83036; G0439